=== PATIENT | female | born 1950 | race Caucasian/White ===

== ENCOUNTER 2017-02-16 05:26 | Day surgery (SDC) | payer OTHER ==
[~2017-02-16] VITALS: Ht 157.5 cm; Wt 128.3 kg
--- NOTE | ~2017-02-16 | O ---
[facility] [place] [address] OPERATIVE REPORT Name: DEVORAH DEL ANGEL Room #: 150-4 [facility]..#: [id number] Admission: 02/16/17 Attend Phys: Boaz Robison MD Discharge: Date of : 52 Report #: [id number] THIS REPORT FOR: //name// CC: NITZA Robison DATE OF SERVICE: 02/16/2017 PREOPERATIVE DIAGNOSIS: Left subtalar osteoarthritis. POSTOPERATIVE DIAGNOSIS: Left subtalar osteoarthritis. PROCEDURE: Left subtalar arthrodesis. SURGEON: Boaz Robison MD CRACKLING PRESS OPERATOR: ADNREA Dudley; critical for positioning the patient and safe performance of the procedure. ANESTHESIA: General. ESTIMATED BLOOD LOSS: Minimal. DRAINS: None. TOURNIQUET TIME: One hour. DESCRIPTION OF PROCEDURE: The patient brought to the operating room, where she was placed under general anesthesia. Once under adequate general anesthesia, her left lower extremity was prepped and draped in sterile manner. The extremity was elevated, exsanguinated, tourniquet placed to 300 mmHg. A lateral incision over the sinus tarsi, utilizing one of the patient's previous scars was then made. This was dissected down through the soft tissue. Examination of the peroneal tendons was made. There was some suture there, which was removed. She had some osteophytes there laterally as well, which was removed with a rongeur. The peroneal tendons in itself appeared to be stable. The subtalar joint was then exposed. Utilizing a lamina rv servicer, osteotomes, curettes and a steffi, we utilized to remove any remaining chondral tissue from the bone, getting to good bleeding subchondral bone. Demineralized bone matrix allograft was then placed into the joint and subsequent fixation utilizing fluoroscopy for guidance was made with two 7.3 mm cannulated screws placed from the neck of the talus into the calcaneus. Excellent fixation was achieved in this manner. The wound was irrigated copiously and closed with 2-0 Vicryl in deep and subcutaneous tissues and naun were used for the skin. The wounds were dressed with Xeroform, 4 x 4s, and sterile soft compressive dressing was placed. Tourniquet was let down at approximately 1 hour. Toes were pink and warm with good capillary refill. [address] [address] OPERATIVE REPORT Name: DEVORAH DEL ANGEL Room #: 150-4 [facility]..#: [id number] Admission: 02/16/17 Attend Phys: Boaz Robison MD Discharge: Date of : 52 Report #: [id number] There were no complications from the procedure. The patient tolerated procedure well and went to the recovery room without incident. <ELECTRONICALLY SIGNED> By: Boaz Robison MD 02/17/17 0801 0836 2 Boaz Robison MD /derek
--- NOTE | ~2017-02-16 | EKG ---
[address] [address] ELECTROCARDIOGRAM REPORT Name: DEVORAH DEL NAGEL Room #: 150-4 [facility]#: [id number] Admission: 02/16/17 Attend Phys: Boaz Robison MD Discharge: Date of : 52 Report #: [id number] THIS REPORT FOR: //name// [facility] Test Date: 2017-02-16 Test Time: 06:30:29 Pat Name: DEVORAH DEL ANGEL Department: Room: 150 4 Gender: F Assembler Trim: ALEX : 1950 Requested By: Boaz Robison Order Number: [id number] MD: Luis Daniel Llanes Measurements Intervals [place] Rate: 66 P: 75 PA: 219 QRS: 19 QRSD: 98 T: 38 QT: 412 QTc: 432 Interpretive Statements Sinus rhythm Borderline prolonged PA interval Compared to ECG 02/27/2016 09:07:18 No significant changes Electronically Signed On 02-16-2017 8:49:58 CDT by Luis Daniel Llanes [email or web address] <ELECTRONICALLY SIGNED> By: Luis Daniel Llanes MD 02/16/17 0849 9 9 Luis Daniel Llanes MD /RAJINDER
--- NOTE | ~2017-02-16 | O ---
[facility] [address] [place] [address] OPERATIVE REPORT Name: DEVORAH DEL ANGEL Room #: 150-4 [facility] M.R.#: [id number] Admission: 02/16/17 Attend Phys: Boaz Robison MD Discharge: Date of : 52 Report #: [id number] THIS REPORT FOR: //name// CC: NITZA Robison DATE OF SERVICE: 02/16/2017 PREOPERATIVE DIAGNOSIS: Left subtalar osteoarthritis. POSTOPERATIVE DIAGNOSES: 1. Left subtalar osteoarthritis. 2. Peroneal tendon tear. PROCEDURE: Left subtalar arthrodesis <ELECTRONICALLY SIGNED> By: Boaz Robison MD 02/17/17 0801 0834 [id number] Boaz Robison MD /nt
[~2017-02-16 05:26] MED LIST: CELEXA40 MG PO; CITRACAL + D M1 EACH PO; CLONAZEPAM 1 MG1 M1 PO; FISH OIL 1,001000 M2 PO; FISH OIL PO; FLURBIPROFEN100 MG PO; GABAPENTIN 100100 MG PO; HYDROCODONE-APA1 TA1 PO; LASIX 20 MG TAB20 MG PO; LIORESAL 10 MG10 MG PO; LISINOPRIL10 MG PO; LORATIDINE 10 M10 M1 PO; MULTIVITAMINS PO; OMEPRAZOLE40 MG PO; PERCOCET 7.5-31 EACH PO; TOPAMAX 100 MG100 MG PO; TOPROL XL100 MG PO; VITAMIN E400 UNIT PO; WELLBUTRIN SR100 MG PO
[2017-02-16 07:00] VITALS: BP 127/78
[2017-02-16 07:04] LABS: CALCIUM 9.5 mg/dL (8.5-10.1); CREATININE 0.9 mg/dL (0.6-1.0); POTASSIUM 3.8 mmol/L (3.5-5.1)
[2017-02-16] MEDS ORDERED: PERCOCET 7.5-31 EACH PO (08:28)
[2017-02-16] MEDS ORDERED: XARELTO10 MG PO (08:29)
[2017-02-16 08:51] VITALS: BP 127/78
== END 2017-02-16 09:40 | disposition home or self-care (01) ==
LOC: TBA 05:26 → OR 05:26 → TBA 05:27 → OR 09:40
PROVIDERS: Orthopaedic Surgery Foot and Ankle Surgery
DX: M19.072 Primary osteoarthritis, left ankle and foot (principal); I10 Essential (primary) hypertension; G43.909 Migraine, unspecified, not intractable, without status migrainosus; M79.7 Fibromyalgia; G47.33 Obstructive sleep apnea (adult) (pediatric); K21.9 Gastro-esophageal reflux disease without esophagitis; F32.89 Other specified depressive episodes; F41.8 Other specified anxiety disorders; Z98.890 Other specified postprocedural states; Z86.2 Personal history of diseases of the blood and blood-forming organs and certain disorders involving the immune mechanism; Z90.49 Acquired absence of other specified parts of digestive tract; Z90.710 Acquired absence of both cervix and uterus; Z87.442 Personal history of urinary calculi; Z88.5 Allergy status to narcotic agent; Z79.899 Other long term (current) drug therapy
CPT/HCPCS: 50010; 50101; 50386; 51014; 51412; 52120; 53023; 53400; 56524; 57091; 62110; 62900; 64042; 70005